=== PATIENT | male | born 1945 | race Caucasian/White ===

== ENCOUNTER 2019-08-22 08:17 | Day surgery (SDC) | payer MEDICARE, SELFPAY ==
[2019-08-15 16:10] VITALS: BMI 31.3
[2019-08-22] VITALS (7 sets, daily range): BP systolic 103–142; BP diastolic 75–88; PULSE 80–90; RESP 15–16; TEMP 37–37.1; O2SAT 94–95; BMI 31.5
--- NOTE | 2019-08-22 | IMM_PTH ---
PATIENT: JOI MIR LOC: [facility] – [place] U#:[id number] AGE/SX: 73/M ROOM: RE08/22/[address]: Dr. Loyd Hogan MD : 1945 BED: DIS: 08/22/2019 SPEC #: [id number] RECD: 08/23/19 10:56 STATUS: RACHEL REQ #: [id number] KIM: 08/22/19 00:[address]: Loyd Hogan DEPT: IMMUNOHISTOCHEMISTRY RECD BY: Wen Milton ENTERED: 08/23/19 10:57 SP TYPE: IMMUNO OTHR DR: Dr. Trenton Hernandez MD Tissues: A - Skin of forearm, NOS B - Skin of arm Procedures: Pankeratin (initial) MELAN-A (add) S-100 (add) PHYSICIAN & INSTITUTION [place] [id number] SPECIMEN INFORMATION: Tissue Source: A - Melanoma right forearm, B - Melanoma right upper arm Clinical Info: 11 mm melanoma in situ distal anterior right arm; 8 mm melanoma in situ mid dorsal right forearm Specimen Number: [id number] A & B CPT code: 11478 x2, 29690 x4 METHODOLOGY: Deparaffinized sections of prefer/formalin-fixed tissue or PAP/DQ stained slides are incubated with monoclonal/polyclonal antibodies/oligonucleotide probes. Localization is made via biotin free immunoperoxidase method. Appropriate controls are performed and reacted as expected. Results on target cell population are indicated in the following table: RESULTS: ANTIBODY / CLONE RESULT Block A AE1-3 (AE1/AE3/PCK26) negative Melan A (A103) positive S-100 (4C4.9) positive Block B AE1-3 (AE1/AE3/PCK26) negative Melan A (A103) positive S-100 (4C4.9) positive These tests were developed and their performance characteristics determined by [facility]. They may not have been cleared or approved by the U.S. Food and Drug Administration. The FDA has determined that such clearance or approval is not necessary. The above immunohistochemical/dualISH markers are ordered and reviewed by the Pathologist. INTERPRETATION: A. Melanoma right forearm, excision: Malignant melanoma in situ, excised. B. Melanoma right upper arm, excision: Malignant melanoma in situ, excised. AM:kings 09/06/19
--- NOTE | 2019-08-22 00:21 | PCM.HP.BLA ---
History and Physical Date of Admission: 08/22/19 HISTORY OF PRESENT ILLNESS 73 year old man presents with a recent diagnosis of melanoma in situ from shave biopsies on 08/05/19 involving the mid dorsal right forearm and the distal anterior right arm. He had seen his PCP for a checkup and he noticed some irregularities in these lesions and biopsied them. He denies fever. He denies trauma. He has never had skin cancer before. There is a family history of skin cancer. He presents today for further evaluation and treatment. PAST MEDICAL HISTORY Asthma Carpal tunnel syndrome Cataracts, bilateral GERD (gastroesophageal reflux disease) Skin cancer PAST SURGICAL HISTORY carpal tunnel release rotator cuff repair ALLERGIES Iodinated Contrast Media adhesive tape MEDICATIONS albuterol sulfate 90 mcg/actuation aerosol inhaler atorvastatin meloxicam omeprazole FAMILY HISTORY Brother - Asthma Other - Family history of skin cancer SOCIAL HISTORY Smoking Status: Former smoker alcohol intake: current substance use type: does not use REVIEW OF SYSTEMS General - Denies fever, fatigue, and weight loss. Eyes - Denies cataracts and glaucoma. ENT - Denies nasal congestion and sore throat. Endocrine - Denies excessive thirst and urination. Skin - Had recent biopsy 08/05/19 on his mid dorsal right forearm and distal anterior right arm that showed melanoma in situ (shave biopsy). Has family history of skin cancer. Musculoskeletal - Has joint pain, joint stiffness, weakness of muscles and joints. Denies back pain, and arthritis. Neuro - Denies headaches. Cardiovascular - Denies chest pain, fatigue, and shortness of breath with exertion. Psych - Denies anxiety and depression. Respiratory - Denies chronic cough and shortness of breath. Patient is a former smoker. Gastrointestinal - Denies nausea, vomiting, diarrhea, and constipation. Hematologic - Denies abnormal bruising and bleeding. Genitourinary - Denies hematuria and urinary frequency. PHYSICAL EXAMINATION General - Alert and Oriented. HEENT - PERRL. EOMI. Throat is clear. No suspicious lesions noted. Neck - Supple and nontender. No cervical adenopathy. No suspicious lesions noted. Lungs - Clear to auscultation. Heart - Regular rate and rhythm. Abdomen - Soft and nondistended. Extremities - FROM. No axillary adenopathy. Radial pulses are palpable. On the distal anterior right arm is a healing shave biopsy that showed melanoma in situ. It measures 11 mm. On the mid dorsal right forearm is a healing shave biopsy that showed melanoma in situ. It measures 8 mm. No other suspicious lesions noted. Neuro - CN II-XII grossly intact. Psych - Normal mood and affect. ASSESSMENT 1. 11 mm melanoma in situ distal anterior right arm, shave biopsy. 2. 8 mm melanoma in situ mid dorsal right forearm, shave biopsy. 3. Family history of skin cancer. 4. Former smoker. PLAN Pathology report reviewed. The biopsy was a shave biopsy. Will need to proceed with a completion excision into the subcutaneous tissue in order to make sure there is not a deeper focus of melanoma present that would affect the definitive treatment. The definitive treatment involves wide excision down to the muscular fascia with a margin in all directions. A melanoma in situ needs a 5 mm margin. A thin melanoma which has a thickness less than 1 mm needs a 1 cm margin. An intermediate thickness melanoma which has a thickness between 1 and 4 mm needs a 2 cm margin. Intermediate thickness melanomas also need to address the lymph nodes with a sentinel lymph node biopsy. A thick melanoma which has a thickness greater than 4 mm needs a 2-3 cm margin. A melanoma in situ does have a propensity to spread horizontally. So peripheral margins are important. Additional excision may be necessary if there is positive margins peripherally. Can proceed with a completion excision next week which can be done on an outpatient basis under local anesthesia and IV sedation. Will excise into the superficial subcutaneous tissue. The wound would be left open and Silver dressing applied. Will instruct the patient and family how to do the Silver dressing changes daily or every other day until the final pathology is available at which time a second procedure would be done on an outpatient basis under general anesthesia which is wide excision down to muscular fascia with skin flap or skin graft reconstruction for each of the melanoma in situ lesions. Patient was informed of the risks and complications of the procedure including alternatives to surgery. These were discussed with the patient personally. Patient voices understanding and wishes to proceed. Some of the risks and complications were included in a form from the [employer]. After treatment of the melanoma, he will need TBSE every 3-6 months. He states his PCP can do the TBSE. Once a year he will need a CXR as well as lab work with LFT's which includes LDH and fractionation of Alkaline Phosphatase.
[2019-08-22] MEDS: Lactated Ringers 1,000 ML 100 ML IV (08:48)
--- NOTE | 2019-08-22 09:55 | LES_PTH ---
PATIENT: JOI MIR LOC: [facility] [place] U#:[id number] AGE/SX: 73/M ROOM: RE08/22/[address]: Dr. Loyd Hogan MD : 1945 BED: DIS: 08/22/2019 SPEC #: [id number] RECD: 08/22/19 13:04 STATUS: RACHEL MICHELE #: [id number] KIM: 08/22/19 09:[address]: Loyd Hogan DEPT: SURGICAL PATHOLOGY RECD BY: Rahat Joaquin ENTERED: 08/22/19 13:21 SP TYPE: Lesion OTHR DR: Dr. Trenton Hernandez MD Tissues: A - Skin of forearm, NOS B - Skin of arm Procedures: Gen Path Consultation (on slides) Surgery Specimen Level IV HEADER OPERATION: Completion excision melanoma in situ, forearm and arm PRE-OP DIAGNOSIS: 11 mm melanoma in situ distal anterior right arm, shave biopsy; 8 mm melanoma in situ mid dorsal right forearm, shave biopsy TISSUE SUBMITTED: A - Excision melanoma right forearm, suture at 12 o'clock, B - Excision melanoma right upper arm, suture at 12 o'clock MICROSCOPIC DIAGNOSIS A. Skin lesion of right forearm, biopsy: Residual malignant melanoma in situ, completely excised. Actinic keratosis and solar elastosis. Cicatrix. See comment. B. Skin lesion of right upper arm, biopsy: Residual malignant melanoma in situ, completely excised. Actinic keratosis and solar elastosis. Cicatrix. See comment. AM:kings 09/06/19 COMMENT A & B. Immunohistochemistry ([id number]) supports the above diagnosis. This case has been reviewed in consultation with Dr. Nobles of [employer]. His report is viewable in EMR. Case has been reviewed in consultation with who concurs with the above diagnosis. IDC:SJ MICROSCOPIC DESCRIPTION Slides are reviewed. GROSS DESCRIPTION A - Received in fixative is one container labeled with the patient's name and designated excision melanoma right forearm. The specimen consists of a discoid fragment of light rajan excised skin measuring 1.4 x 1.2 cm and a depth of excision measuring 0.2 cm. A suture is present at one edge. This edge and corresponding half is inked in yellow ink. The opposite half is inked in black ink. The specimen is serially sectioned and totally submitted in one cassette. B - Received in fixative is one container labeled with the patient's name and designated excision melanoma right upper arm. The specimen consists of a discoid fragment of light rajan excised skin measuring 1.4 x 1.2 cm and a depth of excision measuring 0.2 cm. A suture is present at one edge. This edge and corresponding half is inked in yellow ink. The opposite half is inked in black ink. The specimen is serially sectioned and totally submitted in one cassette. / AM:kings 08/22/19 TC:0 CPT: 61068 x2
[2019-08-22] MEDS: Cefazolin 2 GM in 0.9% Normal Saline 100 ML IV (10:02)
--- NOTE | 2019-08-22 10:39 | PCM.OPRPT ---
Report of Operation Date of Procedure: 08/22/19 Pre-Operative Diagnosis: 1. 11 mm melanoma in situ distal anterior right arm, shave biopsy. 2. 8 mm melanoma in situ mid dorsal right forearm, shave biopsy. 3. Family history of skin cancer. 4. Former smoker. Post-Operative Diagnosis: Same. Surgery/Procedure Performed:: 1. Completion excision 11 mm melanoma in situ distal anterior right arm, shave biopsy. 2. Completion excision 8 mm melanoma in situ mid dorsal right forearm, shave biopsy. Description of Surgical Findings:: 73 year old man presents with a recent diagnosis of melanoma in situ from shave biopsies on 08/05/19 involving the mid dorsal right forearm and the distal anterior right arm. He had seen his PCP for a checkup and he noticed some irregularities in these lesions and biopsied them. He denies fever. He denies trauma. He has never had skin cancer before. There is a family history of skin cancer. Patient was informed of the risks and complications of the procedure including alternatives to surgery. These were discussed with the patient personally. Patient voices understanding and wishes to proceed. Some of the risks and complications were included in a form from the [employer]. Size of defect distal anterior right arm - 1.5 x 1.5 x 0.3 cm. Size of defect mid dorsal right forearm - 1.2 x 1.2 x 0.3 cm. behavioral health care manager: None Type of Anesthesia:: IV Sedation - xylocaine with epinephrine and IV sedation. Specimen's removed: 1. Melanoma in situ distal anterior right arm to Pathology. 2. Melanoma in situ mid dorsal right forearm to Pathology. Drains: None. Estimated Blood Loss (mL): 10 ml. Description of Procedure: Patient was taken to OR in supine position and was given IV sedation. His right arm was prepped and draped in the usual fashion. SCD's were placed for DVT prophylaxis. Perioperative antibiotics were given intravenously. The melanoma in situ lesions distal anterior right arm and mid dorsal right forearm were infiltrated with xylocaine and epinephrine. After waiting 5 minutes for the anesthetic to take effect, the melanoma in situ lesions distal anterior right arm and mid dorsal right forearm were excised in a circular fashion into the superficial subcutaneous tissue for a completion excision to establish a diagnosis. They were both excised with a 2 mm margin in all directions thus making it a 1.5 cm excision for the distal anterior right arm lesion and 1.2 cm excision for the mid dorsal right forearm lesion. A suture was marked at 12 oclock position for pathology orientation for both lesions. The lesions were sent to Pathology for analysis to rule out any residual melanoma. Hemostasis was obtained with electrocautery. The size of the defect after completion excision of the melanoma in situ was 1.5 x 1.5 x 0.3 cm for the distal anterior right arm wound and 1.2 x 1.2 x 0.3 cm for the mid dorsal fight forearm wound. The wounds were then packed with Silver dressing followed by a 4-0 Nylon tie over stent suture dressing followed by 4x4 gauze and a compression kenan wrap. Patient tolerated the procedure well and was sent to PACU in satisfactory condition. Patient will be sent home on antibiotics and pain medication. He will keep his right arm elevated during the initial postoperative period. Patient will followup tomorrow for removal of the Silver dressings and a wound check and for discussion of the pathology report, if available. Once the pathology report is available, will then need definitive wide excision of the melanoma in situ lesions with a margin down to the muscular fascia followed by skin graft or skin flap reconstruction. Grafts/Implants Used: None. - Complications None. - Admit VTE Documentation VTE Present on Admission: No VTE Mechan Device Prophylaxis: SCD's VTE Pharm Prophylaxis ordered?: No Surgery Charges CPT - 64222 ICD-10 - D03.61, Z80.8, Z87.891 43170-81 D03.61, Z80.8, Z87.891
--- NOTE | 2019-08-22 10:49 | DCINST_ITS ---
You will use the following diet at home:: No restrictions Discharge Activity: May Shower - after the operative dressing is removed at the time of the Silver dressing changes., - - keep right arm elevated. no heavy lifting. May shower in (days): 2 - after the operative dressing is removed. May resume sexual activity in: No Restrictions Weight Bearing Status: Weight bearing as tolerated Lifting Restrictions: 20 lbs. Keep extremity elevated above heart level: Right Arm Call your doctor if your incision/area has: Continuous Slow Oozing, Sudden Increased Bleeding, Increased Pain/ Swelling, Increased Redness, Foul Smelling Discharge, Swelling at the incision site Call your doctor if you observe: Fever of 101 or Higher, Coldness, Increased Pain, Shortness of breath, Chest pain, Calf discomfort, Uncontrolled pain Suture Line Care: - - silver dressing changes after the operative dressing is removed. Change Dressing in (Days):: 1 Cleanse incision/area with: - - may shower after the operative dressing is removed at the time of silver dressing change. Allergies/Adverse Reactions: Allergies Iodinated Contrast Media Allergy (Intermediate, Verified 08/22/19 08:25) Unknown adhesive tape Allergy (Mild, Verified 08/22/19 08:25) Unknown Medications to take at Discharge albuterol sulfate 90 mcg/actuation aerosol inhaler 2 puff INHALATION Q6H PRN 08/15/19 atorvastatin 10 mg tablet 10 mg PO DAILY 08/15/19 meloxicam 15 mg tablet 15 mg PO DAILY 08/15/19 omeprazole 40 mg capsule,delayed release 40 mg PO DAILY PRN 08/15/19 Acetaminophen [Pain & Fever] 500 mg PO Q6H PRN PRN 08/19/19 Cefadroxil [Duricef] 500 mg PO BID #10 cap 08/22/19 Lactobacillus Acidophilus/Fos [Acidophilus Probiotic Tablet] 1 ea PO BID #10 tab 08/22/19 Oxycodone HCl/Acetaminophen [Percocet 5/325] 1 tablet PO Q6H PRN PRN 7 Days #28 tablet 08/22/19 The following prescriptions were given: Lactobacillus Acidophilus/Fos [Acidophilus Probiotic Tablet] 1 ea PO BID #10 tab Transmission Status: Pending to [facility] Cefadroxil [Duricef] 500 mg PO BID #10 cap Transmission Status: Pending to [facility] Oxycodone HCl/Acetaminophen [Percocet 5/325] 1 tablet PO Q6H PRN PRN 7 Days #28 tablet PRN Reason: Pain Score 4-5/10 Transmission Status: Sent to [facility] Primary Care Physician: Trenton Hernandez MD [Primary Care Provider] - Test Results: Test results from this visit will be discussed in further detail at your follow- up appointment, if applicable. Please Follow Up With: Loyd Hogan MD When: tomorrow 08/23/19. call [phone] for appt. Proposed Discharge Date: 08/22/19
== END 2019-08-22 12:00 | disposition home or self-care (01) ==
LOC: SDC 08:17 → AC 08:19
PROVIDERS: PCP Family Medicine; Referring Provider Surgery; Visit Provider Surgery
PROC: (CPT 11602; principal; 2019-08-22 09:45)
DX: C43.61 Malignant melanoma of right upper limb, including shoulder (principal); Z80.8 Family history of malignant neoplasm of other organs or systems; E78.00 Pure hypercholesterolemia, unspecified; J45.909 Unspecified asthma, uncomplicated; K21.9 Gastro-esophageal reflux disease without esophagitis; Z87.891 Personal history of nicotine dependence; Z79.899 Other long term (current) drug therapy; L57.0 Actinic keratosis; L57.8 Other skin changes due to chronic exposure to nonionizing radiation; L90.5 Scar conditions and fibrosis of skin
CPT/HCPCS: 11602; 88305; 88325; 88341; 88342; J7120

== ENCOUNTER 2019-09-12 11:23 | Day surgery (SDC) | payer MEDICARE, SELFPAY ==
[2019-09-06 09:55] VITALS: BMI 31.5
--- NOTE | 2019-09-11 23:18 | HP.PCM_ITS ---
History and Physical Date of Admission: 09/12/19 History and Physical Date of Admission: 08/22/19 HISTORY OF PRESENT ILLNESS 73 year old man presents with a recent diagnosis of melanoma in situ from shave biopsies on 08/05/19 involving the mid dorsal right forearm and the distal ant erior right arm. He had seen his PCP for a checkup and he noticed some irregularities in these lesions and biopsied them. He denies fever. He denies trauma. He has never had skin cancer before. There is a family history of skin cancer. He presents today for further evaluation and treatment. PAST MEDICAL HISTORY Asthma Carpal tunnel syndrome Cataracts, bilateral GERD (gastroesophageal reflux disease) Skin cancer PAST SURGICAL HISTORY carpal tunnel release rotator cuff repair ALLERGIES Iodinated Contrast Media adhesive tape MEDICATIONS albuterol sulfate 90 mcg/actuation aerosol inhaler atorvastatin meloxicam omeprazole FAMILY HISTORY Brother - Asthma Other - Family history of skin cancer SOCIAL HISTORY Smoking Status: Former smoker alcohol intake: current substance use type: does not use REVIEW OF SYSTEMS General - Denies fever, fatigue, and weight loss. Eyes - Denies cataracts and glaucoma. ENT - Denies nasal congestion and sore throat. Endocrine - Denies excessive thirst and urination. Skin - Had recent biopsy 08/05/19 on his mid dorsal right forearm and distal anterior right arm that showed melanoma in situ (shave biopsy). Has family history of skin cancer. Musculoskeletal - Has joint pain, joint stiffness, weakness of muscles and joints. Denies back pain, and arthritis. Neuro - Denies headaches. Cardiovascular - Denies chest pain, fatigue, and shortness of breath with exertion. Psych - Denies anxiety and depression. Respiratory - Denies chronic cough and shortness of breath. Patient is a former smoker. Gastrointestinal - Denies nausea, vomiting, diarrhea, and constipation. Hematologic - Denies abnormal bruising and bleeding. Genitourinary - Denies hematuria and urinary frequency. PHYSICAL EXAMINATION General - Alert and Oriented. HEENT - PERRL. EOMI. Throat is clear. No suspicious lesions noted. Neck - Supple and nontender. No cervical adenopathy. No suspicious lesions noted. Lungs - Clear to auscultation. Heart - Regular rate and rhythm. Abdomen - Soft and nondistended. Extremities - FROM. No axillary adenopathy. Radial pulses are palpable. On the distal anterior right arm is a healing shave biopsy that showed melanoma in situ. It measures 11 mm. On the mid dorsal right forearm is a healing shave biopsy that showed melanoma in situ. It measures 8 mm. No other suspicious lesions noted. Neuro - CN II-XII grossly intact. Psych - Normal mood and affect. ASSESSMENT 1. 11 mm melanoma in situ distal anterior right arm, shave biopsy. 2. 8 mm melanoma in situ mid dorsal right forearm, shave biopsy. 3. Family history of skin cancer. 4. Former smoker. PLAN Pathology report reviewed. The biopsy was a shave biopsy. Will need to proceed with a completion excision into the subcutaneous tissue in order to make sure there is not a deeper focus of melanoma present that would affect the definitive treatment. The definitive treatment involves wide excision down to the muscular fascia with a margin in all directions. A melanoma in situ needs a 5 mm margin. A thin melanoma which has a thickness less than 1 mm needs a 1 cm margin. An intermediate thickness melanoma which has a thickness between 1 and 4 mm needs a 2 cm margin. Intermediate thickness melanomas also need to address the lymph nodes with a sentinel lymph node biopsy. A thick melanoma which has a thickness greater than 4 mm needs a 2-3 cm margin. A melanoma in situ does have a propensity to spread horizontally. So peripheral margins are important. Additional excision may be necessary if there is positive margins peripherally. Can proceed with a completion excision next week which can be done on an outpatient basis under local anesthesia and IV sedation. Will excise into the superficial subcutaneous tissue. The wound would be left open and Silver dressing applied. Will instruct the patient and family how to do the Silver dressing changes daily or every other day until the final pathology is available at which time a second procedure would be done on an outpatient basis under general anesthesia which is wide excision down to muscular fascia with skin flap or skin graft reconstruction for each of the melanoma in situ lesions. Patient was informed of the risks and complications of the procedure including alternatives to surgery. These were discussed with the patient personally. Patient voices understanding and wishes to proceed. Some of the risks and complications were included in a form from the [employer]. After treatment of the melanoma, he will need TBSE every 3-6 months. He states his PCP can do the TBSE. Once a year he will need a CXR as well as lab work with LFT's which includes LDH and fractionation of Alkaline Phosphatase.
--- NOTE | 2019-09-12 | IMM_PTH ---
PATIENT: JOI MIR [place] [facility] [place][id number] AGE/SX: 73/M ROOM: RE09/12/[address]: Dr. Loyd Hogan MD : 1945 BED: DIS: 09/12/2019 SPEC #: [id number] RECD: 09/16/19 11:24 STATUS: SOUGumaro REQ #: [id number] KIM: 09/12/19 00:[address]: Loyd Hogan DEPT: IMMUNOHISTOCHEMISTRY RECD BY: Wen Milton ENTERED: 09/16/19 11:26 SP TYPE: IMMUNO OTHR DR: Dr. Trenton Hernandez MD Tissues: A - Skin of upper extremity, NOS B - Skin of upper extremity, NOS Procedures: MACRO (add) MELAN-A (initial) MELAN-A (add) P40 (add) S-100 (add) PHYSICIAN & INSTITUTION [place] [id number] SPECIMEN INFORMATION: Tissue Source: A - Melanoma in situ distal anterior right arm, B - Melanoma in situ mid dorsal right arm Clinical Info: Melanoma in situ distal anterior right arm, melanoma in situ mid dorsal right arm Specimen Number: [id number] A2-A4, B1-B3 CPT code: 90046 x2, 90454 x22 METHODOLOGY: Deparaffinized sections of prefer/formalin-fixed tissue or PAP/DQ stained slides are incubated with monoclonal/polyclonal antibodies/oligonucleotide probes. Localization is made via biotin free immunoperoxidase method. Appropriate controls are performed and reacted as expected. Results on target cell population are indicated in the following table: RESULTS: ANTIBODY / CLONE RESULT Block A2 S-100 (4C4.9) negative Melan A (A103) negative P40 (BC28) negative Macro (HAM-56) positive Block A3 S-100 (4C4.9) negative Melan A (A103) negative P40 (BC28) negative Macro (HAM-56) positive Block A4 S-100 (4C4.9) negative Melan A (A103) negative P40 (BC28) negative Macro (HAM-56) positive Block B1 S-100 (4C4.9) negative Melan A (A103) negative P40 (BC28) negative Macro (HAM-56) positive Block B2 S-100 (4C4.9) negative Melan A (A103) negative P40 (BC28) negative Macro (HAM-56) positive Block B3 S-100 (4C4.9) negative Melan A (A103) negative P40 (BC28) negative Macro (HAM-56) positive These tests were developed and their performance characteristics determined by [facility]. They may not have been cleared or approved by the U.S. Food and Drug Administration. The FDA has determined that such clearance or approval is not necessary. The above immunohistochemical/dualISH markers are ordered and reviewed by the Pathologist. INTERPRETATION: A. Melanoma in situ distal anterior right arm, excision: No evidence of residual melanoma. B. Melanoma in situ mid dorsal right arm, excision: No evidence of residual melanoma. AM:kings 09/17/19
--- NOTE | 2019-09-12 | LES_PTH ---
PATIENT: JOI MIR LOC: [facility] [place] U[place][id number] AGE/SX: 73/M ROOM: RE09/12/[address]: Dr. Loyd Hogan MD : 1945 BED: DIS: 09/12/2019 SPEC #: [id number] RECD: 09/12/19 14:45 STATUS: RACHEL RELaine #: [id number] KIM: 09/12/19 00:[address]: Loyd Hogan DEPT: SURGICAL PATHOLOGY RECD BY: Henry Griffin ENTERED: 09/13/19 10:28 SP TYPE: Lesion OTHR DR: Dr. Trenton Hernandez MD Tissues: A - Skin of arm B - Skin of forearm, NOS Procedures: Surgery Specimen Level IV HEADER OPERATION: Wide excision melanoma distal anterior arm, mid dorsal forearm PRE-OP DIAGNOSIS: 11 mm melanoma in situ distal anterior right arm; 8 mm melanoma in situ mid dorsal right forearm TISSUE SUBMITTED: A - Melanoma in situ distal anterior right arm, suture at 12 o'clock, B - Melanoma in situ mid dorsal right forearm, suture at 12 o'clock MICROSCOPIC DIAGNOSIS A. Skin lesion, distal anterior arm, excision: Cicatrix with associated reactive and reparative change. Focal superficial ulceration with acute inflammation. Extensive solar elastosis. No evidence of residual melanoma. See comment. B. Skin and soft tissue of right forearm, excision: Cicatrix with associated reactive and reparative change. Focal superficial ulceration with acute inflammation. Extensive solar elastosis. No evidence of residual melanoma. See comment. AM:kings 09/16/19 COMMENT A & B. Immunohistochemistry ([id number]) supports the above diagnosis. Case has been reviewed in consultation with who concurs with the above diagnosis. IDC:SJ Reference is made to the patient's previous skin biopsy of forearm and right upper arm from 08/23/19 ([id number]) in which residual malignant melanoma in situ, completely excised was identified. MICROSCOPIC DESCRIPTION Slides are reviewed. GROSS DESCRIPTION A - Received in fixative is one container labeled with the patient's name and designated melanoma in situ distal anterior right arm, suture at 12 o'clock. The specimen consists of a edvin-shaped piece of skin with underlying tissue measuring 2 x 2 cm and up to 2 cm in thickness. The skin surface shows focal area of ulceration measuring 0.6 x 0.6 cm. The specimen is oriented by a suture at 12 o'clock. The specimen is inked as follows: 12 to 3 o'clock - black, 3 to 6 o'clock - blue, 6 to 9 o'clock - green and 9 to 12 o'clock - yellow. The specimen is serially sectioned and submitted entirely in five cassettes. B - Received in fixative is one container labeled with the patient's name and designated melanoma in situ mid dorsal right forearm, suture at 12 o'clock. The specimen consists of a edvin-shaped piece of skin with underlying tissue measuring 2.5 x 2.2 cm and up to 0.5 cm in thickness. The skin surface shows focal area of ulceration measuring 1 cm in greatest dimension. The specimen is oriented by a suture at 12 o'clock. The specimen is inked as follows: 12 to 3 o'clock - black, 3 to 6 o'clock - blue, 6 to 9 o'clock - green and 9 to 12 o'clock - yellow. The specimen is serially sectioned and submitted entirely in three cassettes. / ONEL:kings 09/13/19 TC:5 CPT: 85879 x2
[2019-09-12] MEDS: Lactated Ringers 1,000 ML 100 ML IV (11:48)
[2019-09-12 11:55] VITALS: BP 133/83; PULSE 88; RESP 16; TEMP 37.1; O2SAT 96; BMI 30.3
[2019-09-12] MEDS: Cefazolin 2 GM in 0.9% Normal Saline 100 ML IV (13:00)
[2019-09-12] MEDS: Mupirocin Ointment 22gm Tube 1 APPLIC (14:18)
[2019-09-12 14:30] VITALS: BP 128/84; BP 133/83; PULSE 85; RESP 16; TEMP 36.9; O2SAT 97
--- NOTE | 2019-09-12 14:33 | OP.PCM_ITS ---
Report of Operation Date of Procedure: 09/12/19 Pre-Operative Diagnosis: 1. 15 mm melanoma in situ wound distal anterior right arm. 2. 12 mm melanoma in situ wound mid dorsal right forearm. 3. Family history of skin cancer. 4. Former smoker. Post-Operative Diagnosis: Same. Surgery/Procedure Performed:: 1. Wide excision 15 mm melanoma in situ wound distal anterior right arm with rhomboid transposition skin flap reconstruction (12.5 cm2) and placement AmnioFill placental connective tissue powder, 250 mg (one half). 2. Wide excision 12 mm melanoma in situ wound mid dorsal right forearm with rhomboid transposition skin flap reconstruction (9.68 cm2) and plac ement AmnioFill placental connective tissue powder, 250 mg (one half). Description of Surgical Findings:: Patient went to surgery on 08/22/19 where he underwent completion excision 11 mm melanoma in situ distal anterior right arm, a shave biopsy, and completion excision 8 mm melanoma in situ mid dorsal right forearm, a shave biopsy. Pathology in both lesions showed residual melanoma in situ, completely excised. He presents now for definitive wide excision of melanoma in situ of the distal anterior right arm and mid dorsal right forearm with a 5 mm margin down to the muscular fascia with skin flap or skin graft reconstruction. Surgery will be done under general anesthesia on an outpatient basis. Patient was informed of the risks and complications of the procedure including alternatives to surgery. These were discussed with the patient personally. Patient voices understanding and wishes to proceed. Some of the risks and complications were included in a form from the [employer]. I used AmnioFill Placental Connective Tissue Powder, 250 mg. Catalog Number - [id number]. Lot Number - [id number]. Expiration - May 12, 2024. 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 Specimen's removed: 1. Melanoma in situ wound distal anterior right arm to Pathology. 2. Melanoma in situ wound mid dorsal right forearm to Pathology. Drains: None. Estimated Blood Loss (mL): 10 ml. Description of Procedure: Patient was taken to OR in supine position and was given IV sedation. The right upper extremity was prepped and draped in the usual fashion. SCD's were placed for DVT prophylaxis. Perioperative antibiotics were given intravenously. The melanoma wounds distal anterior right arm and mid dorsal right forearm were infiltrated with xylocaine and epinephrine. After waiting 5 minutes for the anesthetic to take effect, I proceeded with wide excision of each melanoma wound with a 5 mm margin in all directions in a rhomboid fashion down to the muscular fascia. Hemostasis was obtained with electrocautery. Rhomboid flaps were designed adjacent to each defect. The rhomboid flaps were dissected on a subcutaneous pedicle at the level of the underlying muscular fascia. The rhomboid flaps were transposed into each defect with minimal tension and minimal distortion. Before wound closure, I placed AmnioFill placental connective tissue powder in both wounds to help the healing process. I used half of the AmnioFill in each wound. The wounds were then closed in a layered fashion with 4-0 Monocryl interrupted sutures for the deep dermis and subcutaneous tissue. The skin was approximated with 4-0 Prolene simple interrupted sutures. Antibiotic ointment was applied to the suture lines followed by Kerlix gauze and a compression RAYA wrap. The size of the defect and the size of the flap needed to close the distal anterior right arm defect was 12.5 cm2. The size of the defect and the size of the flap needed to close the mid dorsal right forearm defect was 9.68 cm2. Patient tolerated the procedure well and was sent to PACU in satisfactory condition. Patient will be sent home on antibiotics and pain medication. He will keep his right arm elevated during the initial postoperative period. Patient will followup in a week for a wound check and for discussion of the pathology report. The sutures will be removed in two weeks. Grafts/Implants Used: AmnioFill Placental Connective Tissue Powder. - Complications None. - Admit VTE Documentation VTE Present on Admission: No VTE Mechan Device Prophylaxis: SCD's VTE Pharm Prophylaxis ordered?: No Surgery Charges CPT - 42090-83 ICD-10 - D03.61, S41.101A, Z80.8, Z87.891 28291 D03.61, S41.101A, Z80.8, Z87.891
[2019-09-12 14:35] VITALS: BP 132/86; BP 133/83; PULSE 86; RESP 17; O2SAT 97
[2019-09-12 14:40] VITALS: BP 133/83; BP 141/82; PULSE 82; RESP 16; O2SAT 97
--- NOTE | 2019-09-12 14:43 | PCM.DC ---
You will use the following diet at home:: No restrictions Discharge Activity: May not drive while taking narcotic pain medications., May Shower - in two days., - - keep right arm elevated. no heavy lifting. May shower in (days): 2 - replace kenan wrap after shower. May resume sexual activity in: No Restrictions Weight Bearing Status: Weight bearing as tolerated Lifting Restrictions: 20 lbs. Keep extremity elevated above heart level: Right Arm Call your doctor if your incision/area has: Continuous Slow Oozing, Sudden Increased Bleeding, Increased Pain/ Swelling, Increased Redness, Foul Smelling Discharge, Swelling at the incision site Call your doctor if you observe: Fever of 101 or Higher, Coldness, Increased Pain, Shortness of breath, Chest pain, Calf discomfort, Uncontrolled pain Suture Line Care: - - after dressing changed in two days, apply antibiotic ointment to suture lines daily followed by small gauze and kenan wrap. Change Dressing in (Days):: 2 - reapply kenan wrap after the dressing change. Cleanse incision/area with: - - may get incisions wet in the shower in two days. Allergies/Adverse Reactions: Allergies Iodinated Contrast Media Allergy (Intermediate, Verified 09/06/19 09:54) Unknown adhesive tape Allergy (Mild, Verified 09/06/19 09:54) Unknown Medications to take at Discharge albuterol sulfate 90 mcg/actuation aerosol inhaler 2 puff INHALATION Q6H PRN 08/15/19 atorvastatin 10 mg tablet 10 mg PO DAILY 08/15/19 meloxicam 15 mg tablet 15 mg PO DAILY 08/15/19 omeprazole 40 mg capsule,delayed release 40 mg PO DAILY PRN 08/15/19 Acetaminophen [Pain & Fever] 500 mg PO Q6H PRN PRN 08/19/19 Loratadine [Claritin] 10 mg PO DAILY 09/10/19 Cefadroxil [Duricef] 500 mg PO BID #10 cap 09/12/19 Lactobacillus Acidophilus/Fos [Acidophilus Probiotic Tablet] 1 ea PO BID #15 tab 09/12/19 Oxycodone HCl/Acetaminophen [Percocet 5/325] 1 tablet PO Q6H PRN PRN 7 Days #28 tablet 09/12/19 The following prescriptions were given: Lactobacillus Acidophilus/Fos [Acidophilus Probiotic Tablet] 1 ea PO BID #15 tab Transmission Status: Pending to [facility] Cefadroxil [Duricef] 500 mg PO BID #10 cap Transmission Status: Pending to [facility] Oxycodone HCl/Acetaminophen [Percocet 5/325] 1 tablet PO Q6H PRN PRN 7 Days #28 tablet PRN Reason: Pain Score 4-5/10 Transmission Status: Sent to [facility] Primary Care Physician: Trenton Hernandez MD [Primary Care Provider] - Test Results: Test results from this visit will be discussed in further detail at your follow-up appointment, if applicable. Please Follow Up With: Loyd Hogan MD When: one week. call [phone] for appt. Proposed Discharge Date: 09/12/19
[2019-09-12 14:45] VITALS: BP 128/86; BP 133/83; PULSE 78; RESP 16; TEMP 36.6; O2SAT 97
[2019-09-12 15:17] VITALS: BP 133/83
== END 2019-09-12 15:31 | disposition home or self-care (01) ==
LOC: SDC 11:24 → AC 11:25
PROVIDERS: PCP Family Medicine; Referring Provider Surgery; Visit Provider Surgery
PROC: (CPT 14020; principal; 2019-09-12 12:45)
DX: C43.61 Malignant melanoma of right upper limb, including shoulder (principal); Z80.8 Family history of malignant neoplasm of other organs or systems; J45.909 Unspecified asthma, uncomplicated; K21.9 Gastro-esophageal reflux disease without esophagitis; Z79.899 Other long term (current) drug therapy; Z87.891 Personal history of nicotine dependence; E78.00 Pure hypercholesterolemia, unspecified
CPT/HCPCS: 14020; 14021; 88305; 88341; 88342; J7120